=== PATIENT | male | born 1985 | race Caucasian/White ===

== ENCOUNTER 2021-01-26 18:45 | Day surgery (SDC) | payer SELFPAY ==
[2021-01-26] MEDS ORDERED: Ketorolac 30 MG/ML SDV IVPUSH ONE (19:06)
[2021-01-26] MEDS ORDERED: Sodium Chloride 0.9% 1,000 ML IV ONE (19:06)
[2021-01-26] MEDS ORDERED: Sodium Chloride 0.9% 2.5 ML Syringe FLUSH PRN (19:06)
[2021-01-26] MEDS ORDERED: Ondansetron 4 MG/2 ML SDV IVPUSH ONE (19:06)
[2021-01-26] MEDS ORDERED: Sodium Chloride 0.9% 10 ML Syringe FLUSH PRN (19:06)
--- NOTE | 2021-01-26 19:19 | EDM.PDOC ---
ED HPI GENERAL MEDICAL PROBLEM - General Chief Complaint: Abdominal Pain Stated Complaint: POSSIBLE APPENDICITIS Time Seen by Provider: 01/26/21 18:54 Source of Information: Reports: Patient History Limitations: Reports: No Limitations - History of Present Illness INITIAL COMMENTS - FREE TEXT/NARRATIVE: HISTORY AND PHYSICAL: History of present illness: The patient is a 35-year-old male who presents to the emergency room with right lower quad pain which started around 01:00 today. The patient states that the pain started around his umbilicus and migrated to the right lower quadrant. He denies nausea but states he has been vomiting. He had a soft bowel movement today. He has decreased urination and describes it as cloudy in color. Denies fever but states he has had chills. Last meal was biscuits and gravy at noon, which he vomited up around 2 PM. Around 3 PM he took some Pepto-Bismol and after 30 minutes he vomited it back up. He stated that he has never had this pain before. Patient denies any headache, change in vision, syncope or near syncope. Denies any chest pain, back pain, shortness of breath or cough. Denies any diarrhea, constipation or dysuria. Has not noted any blood in urine or stool. Review of systems: As per history of present illness and below otherwise all systems reviewed and negative. Past medical history: As per history of present illness and as reviewed below otherwise noncontributory. Surgical history: As per history of present illness and as reviewed below otherwise noncontributory. Social history: See social history for further information Family history: As per history of present illness and as reviewed below otherwise noncontributory. Physical exam: General: Well developed and well nourished. Alert and orientated x 3. Nontoxic in appearance and in mild distress. Vital signs are stable and have been reviewed by me. Nursing notes were reviewed. HEENT: Atraumatic, normocephalic, pupils equal and reactive bilaterally, negative for conjunctival pallor or scleral icterus, mucous membranes moist, neck supple, nontender, trachea midline. No drooling or trismus noted. No meningeal signs. No hot potato voice noted. Lungs: Clear to auscultation bilaterally. No wheezes, rales, or rhonchi. Chest nontender. Normal work of breathing, no accessory muscles used. Heart: S1S2, regular rate and rhythm without overt murmur, gallops, or rubs. No JVD. No peripheral edema Abdomen: Tender RLQ. Negative obturator sign. + Psoas sign. Hypoactive bowel sounds. Negative for masses or costovertebral tenderness. Skin: Intact, warm, dry. No lesions or rashes noted. Hematologic: No petechiae or purpra. Mucosa appropriate color and normal nail bed color and refill. Extremities: Atraumatic, moves all extremities per self without difficulty or deficits, negative for cords or calf pain. Neurovascular unremarkable. Neuro: Awake, alert, oriented. Cranial nerves II through XII unremarkable. Cerebellum unremarkable. Motor and sensory unremarkable throughout. Exam nonfocal. Psychiatric: Patient is anxious but cooperative. Normal thought process. Answering questions appropriately. Notes: *This patient was seen and evaluated during the 2019 SARS-CoV-2 novel coronavirus pandemic period. Community viral transmission is ongoing at time of this encounter and the emergency department is operating under pandemic response procedures. Discussed the patient's signs and symptoms with him and he is agreeable to labs, CT, fluids, and medications. Patient has pain relief after Toradol. I have talked with the patient about today's findings, in addition to providing specific details for plan of care. Reassessment at the time of disposition demonstrates that the patient is in no acute distress. Denies any further questions or concerns at this time. CT results findings most consistent with appendicitis without evidence of abscess or free air. Dr. Barraza contacted regarding the patient's CAT scan results, white blood cell count and presentation. Dr. Barraza will be taking the patient to surgery. The patient is informed and agreeable to the plan. Diagnostics: CT, CBC, CMP, Lipase, UA, COVID-19 Therapeutics: IV fluids, Zofran, Toradol, LR IV fluids, Levaquin 750mg IV Impression: Appendicitis Plan: To OR with Dr. Barraza. Definitive disposition and diagnosis as appropriate pending reevaluation and review of above. Right Lower Abdomen Pain Score (Numeric/FACES): 7 - Related Data Allergies Allergy/AdvReac Type Severity Reaction Status Date / Time Penicillins Allergy Mild Rash Verified 01/27/21 01:16 egg Allergy Hives Verified 01/27/21 01:17 Home Meds: Home Meds . [No Known Home Meds] 01/26/21 [History] Past Medical History - Past Health History Medical/Surgical History: Denies Medical/Surgical History - Infectious Disease History Infectious Disease History: Reports: Chicken Pox - Past Surgical History HEENT Surgical History: Reports: Tonsillectomy Social & Family History - Family History Family Medical History: No Pertinent Family History - Tobacco Use Tobacco Use Status *Q: Current Every Day Tobacco User Years of Tobacco use: 10 Packs/Tins Daily: 0.5 - Caffeine Use Caffeine Use: Reports: Coffee - Recreational Drug Use Recreational Drug Use: No ED ROS GENERAL - Review of Systems Review Of Systems: Comprehensive ROS is negative, except as noted in HPI. ED EXAM, GI/ABD - Physical Exam Exam: See Below (See dictation) Course - Vital Signs Last Recorded V/S: Last Vital Signs Temp 98.4 F 01/27/21 08:47 Pulse 76 01/27/21 08:47 Resp 14 01/27/21 08:47 BP 114/67 01/27/21 08:47 Pulse Ox 98 01/27/21 08:47 - Orders/Labs/Meds Labs: Laboratory Tests 01/26/21 01/26/21 01/26/21 Range/Units 19:10 19:10 19:28 WBC 18.39 H (4.0-11.0) K/uL RBC 5.42 (4.50-5.90) M/uL Hgb 17.8 H (13.0-17.0) g/dL Hct 51.2 H (38.0-50.0) % MCV 94.5 (80.0-98.0) fL MCH 32.8 H (27.0-32.0) pg MCHC 34.8 (31.0-37.0) g/dL RDW Std Deviation 44.3 (28.0-62.0) fl RDW Coeff of Cari 13 (11.0-15.0) % Plt Count 212 (150-400) K/uL MPV 11.30 (7.40-12.00) fL Neut % (Auto) 85.3 H (48.0-80.0) % Lymph % (Auto) 6.4 L (16.0-40.0) % [place] % (Auto) 7.9 (0.0-15.0) % Eos % (Auto) 0.2 (0.0-7.0) % Baso % (Auto) 0.2 (0.0-1.5) % Neut # (Auto) 15.7 H (1.4-5.7) K/uL Lymph # (Auto) 1.2 (0.6-2.4) K/uL [place] # (Auto) 1.5 H (0.0-0.8) K/uL Eos # (Auto) 0.0 (0.0-0.7) K/uL Baso # (Auto) 0.0 (0.0-0.1) K/uL Nucleated RBC % 0.0 /100WBC Nucleated RBCs # 0 K/uL Sodium 138 (136-148) mmol/L Potassium 3.4 L (3.5-5.1) mmol/L Chloride 100 (98-107) mmol/L Carbon Dioxide 24.2 (21.0-32.0) mmol/L BUN 14 (7.0-18.0) mg/dL Creatinine 1.2 (0.8-1.3) mg/dL Est Cr Clr Drug Dosing 104.65 mL/min Estimated GFR (MDRD) > 60.0 ml/min Glucose 109 H (74-106) mg/dL Calcium 9.6 (8.5-10.1) mg/dL Total Bilirubin 1.2 H (0.2-1.0) mg/dL AST 13 L (15-37) IU/L ALT 36 (14-63) IU/L Alkaline Phosphatase 95 (46-116) U/L Total Protein 8.3 H (6.4-8.2) g/dL Albumin 4.6 (3.4-5.0) g/dL Globulin 3.7 (2.6-4.0) g/dL Albumin/Globulin Ratio 1.2 (0.9-1.6) Lipase 94 (73-393) U/L Urine Color Urine Appearance Urine pH (5.0-8.0) Ur Specific [place] (1.001-1.035) Urine Protein (NEGATIVE) mg/dL Urine Glucose (UA) (NEGATIVE) mg/dL Urine Ketones (NEGATIVE) mg/dL Urine Occult Blood (NEGATIVE) Urine Nitrite (NEGATIVE) Urine Bilirubin (NEGATIVE) Urine Ictotest Urine Urobilinogen (<2.0) EU/dL Ur Leukocyte Esterase (NEGATIVE) Urine RBC (0-2/HPF) Urine WBC (0-5/HPF) Ur Epithelial Cells (NONE-FEW) Urine Bacteria (NEGATIVE) SARS-CoV-2 RNA (LILIYA) NEGATIVE (NEGATIVE) 01/26/21 Range/Units 19:55 WBC (4.0-11.0) K/uL RBC (4.50-5.90) M/uL Hgb (13.0-17.0) g/dL Hct (38.0-50.0) % MCV (80.0-98.0) fL MCH (27.0-32.0) pg MCHC (31.0-37.0) g/dL RDW Std Deviation (28.0-62.0) fl RDW Coeff of [place]ari (11.0-15.0) % Plt Count (150-400) K/uL MPV (7.40-12.00) fL Neut % (Auto) (48.0-80.0) % Lymph % (Auto) (16.0-40.0) % [place] % (Auto) (0.0-15.0) % Eos % (Auto) (0.0-7.0) % Baso % (Auto) (0.0-1.5) % Neut # (Auto) (1.4-5.7) K/uL Lymph # (Auto) (0.6-2.4) K/uL [place] # (Auto) (0.0-0.8) K/uL Eos # (Auto) (0.0-0.7) K/uL Baso # (Auto) (0.0-0.1) K/uL Nucleated RBC % /100WBC Nucleated RBCs # K/uL Sodium (136-148) mmol/L Potassium (3.5-5.1) mmol/L Chloride (98-107) mmol/L Carbon Dioxide (21.0-32.0) mmol/L BUN (7.0-18.0) mg/dL Creatinine (0.8-1.3) mg/dL Est Cr Clr Drug Dosing mL/min Estimated GFR (MDRD) ml/min Glucose (74-106) mg/dL Calcium (8.5-10.1) mg/dL Total Bilirubin (0.2-1.0) mg/dL AST (15-37) IU/L ALT (14-63) IU/L Alkaline Phosphatase (46-116) U/L Total Protein (6.4-8.2) g/dL Albumin (3.4-5.0) g/dL Globulin (2.6-4.0) g/dL Albumin/Globulin Ratio (0.9-1.6) Lipase (73-393) U/L Urine Color YELLOW Urine Appearance CLEAR Urine pH 7.0 (5.0-8.0) Ur Specific [place] 1.025 (1.001-1.035) Urine Protein TRACE H (NEGATIVE) mg/dL Urine Glucose (UA) NEGATIVE (NEGATIVE) mg/dL Urine Ketones >=80 (NEGATIVE) mg/dL Urine Occult Blood NEGATIVE (NEGATIVE) Urine Nitrite NEGATIVE (NEGATIVE) Urine Bilirubin MODERATE H (NEGATIVE) Urine Ictotest NEGATIVE Urine Urobilinogen 1.0 (<2.0) EU/dL Ur Leukocyte Esterase NEGATIVE (NEGATIVE) Urine RBC 0-1 (0-2/HPF) Urine WBC 0-1 (0-5/HPF) Ur Epithelial Cells RARE (NONE-FEW) Urine Bacteria RARE (NEGATIVE) SARS-CoV-2 RNA (LILIYA) (NEGATIVE) Meds: Medications Discontinued Medications Generic Name Dose Route Start Last Admin Trade Name Freq PRN Reason Stop Dose Admin Albuterol Confirm 01/26/21 23:44 Albuterol 6.7 Gm Inhaler Administered 01/26/21 23:45 Dose 6.7 gm INH .STK-MED ONE Dexamethasone Confirm 01/26/21 21:52 Dexamethasone 4 Mg/Ml 5 Ml Mdv Administered 01/26/21 21:53 Dose 20 mg .ROUTE .STK-MED ONE Fentanyl Confirm 01/26/21 21:53 Fentanyl 250 Mcg/5 Ml Sdv Administered 01/26/21 21:54 Dose 250 mcg .ROUTE .STK-MED ONE Fentanyl 50 mcg 01/26/21 22:48 Fentanyl 100 Mcg/2 Ml Sdv IVPUSH 01/27/21 22:48 Q5M PRN Pain (severe 7-10) Glycopyrrolate Confirm 01/26/21 22:54 Glycopyrrolate 0.2 Mg/Ml Sdv Administered 01/26/21 22:55 Dose 0.6 mg .ROUTE .STK-MED ONE Hydromorphone HCl Confirm 01/26/21 22:41 Hydromorphone 2 Mg/Ml Syringe Administered 01/26/21 22:42 Dose 2 mg .ROUTE .STK-MED ONE Sodium Chloride 1,000 mls @ 999 mls/hr 01/26/21 19:06 01/26/21 19:14 Normal Saline IV 01/26/21 20:06 999 mls/hr BOLUS ONE Administration Lactated Ringer's 1,000 mls @ 150 mls/hr 01/26/21 20:46 01/26/21 20:52 Ringers, Lactated IV 01/27/21 03:25 150 mls/hr ASDIRECTED STA Administration Levofloxacin/Dextrose 750 mg/ 150 mls @ 100 mls/hr 01/26/21 20:46 01/26/21 20:52 Premix IV 01/26/21 22:15 100 mls/hr ONETIME ONE Administration Bupivacaine HCl/Epinephrine Bitart Confirm 01/26/21 22:11 Sensorc Mpf 0.25%-Epi [id number] Administered 01/26/21 22:12 Dose 30 mls @ as directed .ROUTE .STK-MED ONE Acetaminophen 1,000 mg/ Premix 100 mls @ 400 mls/hr 01/26/21 22:56 01/27/21 06:15 IV 01/26/21 23:10 Not Given NOW ONE Lactated Ringer's 1,000 mls @ 125 mls/hr 01/26/21 23:45 Ringers, Lactated IV ASDIRECTED TERE Levofloxacin/Dextrose 750 mg/ 150 mls @ 100 mls/hr 01/27/21 21:00 Premix IV Q24H TERE Iopamidol 100 ml 01/26/21 20:07 01/26/21 20:07 Iopamidol 755 Mg/Ml 500 Ml Multipack Bottle IVPUSH 01/26/21 20:08 100 ml ONETIME STA Administration Ketorolac Tromethamine 30 mg 01/26/21 19:06 01/26/21 19:14 Ketorolac 30 Mg/Ml Sdv IVPUSH 01/26/21 19:07 30 mg ONETIME ONE Administration Ketorolac Tromethamine Confirm 01/26/21 23:47 Ketorolac 30 Mg/Ml Sdv Administered 01/26/21 23:48 Dose 30 mg .ROUTE .STK-MED ONE Lidocaine Confirm 01/26/21 21:52 Lidocaine 2% 5 Ml Sdv Administered 01/26/21 21:53 Dose 5 ml .ROUTE .STK-MED ONE Midazolam HCl Confirm 01/26/21 21:53 Midazolam 1 Mg/Ml 2 Ml Sdv Administered 01/26/21 21:54 Dose 2 mg .ROUTE .STK-MED ONE Midazolam HCl Confirm 01/26/21 23:12 Midazolam 1 Mg/Ml 2 Ml Sdv Administered 01/26/21 23:13 Dose 2 mg .ROUTE .STK-MED ONE Morphine Sulfate 4 mg 01/26/21 23:52 Morphine 4 Mg/Ml Syringe IVPUSH Q6H PRN Breakthrough Pain Octyl Cyanoacrylate Confirm 01/26/21 22:11 Octyl 2-Cyanoacrylate 1 Tube Administered 01/26/21 22:12 Dose 1 applic .ROUTE .STK-MED ONE Ondansetron HCl 4 mg 01/26/21 19:06 01/26/21 19:14 Ondansetron 4 Mg/2 Ml Sdv IVPUSH 01/26/21 19:07 4 mg ONETIME ONE Administration Ondansetron HCl Confirm 01/26/21 21:52 Ondansetron 4 Mg/2 Ml Sdv Administered 01/26/21 21:53 Dose 4 mg .ROUTE .STK-MED ONE Ondansetron HCl 4 mg 01/26/21 23:56 Ondansetron 4 Mg/2 Ml Sdv IVPUSH Q8H PRN Nausea/Vomiting Oxycodone/Acetaminophen 1 tab 01/26/21 23:52 01/27/21 11:51 Acetaminophen/Oxycodone 325-5 Mg Tab PO 1 tab Q6H PRN Administration Pain Propofol Confirm 01/26/21 21:52 Propofol 200 Mg/20 Ml Sdv Administered 01/26/21 21:53 Dose 200 mg .ROUTE .STK-MED ONE Rocuronium [place] Confirm 01/26/21 21:52 Rocuronium [place] 50 Mg/5 Ml Syringe Administered 01/26/21 21:53 Dose 50 mg .ROUTE .STK-MED ONE Sodium Chloride 10 ml 01/26/21 19:06 01/26/21 19:15 Sodium Chloride 0.9% 10 Ml Syringe FLUSH 10 ml ASDIRECTED PRN Administration Keep Vein Open Sodium Chloride 2.5 ml 01/26/21 19:06 01/26/21 19:15 Sodium Chloride 0.9% 2.5 Ml Syringe FLUSH 2.5 ml ASDIRECTED PRN Administration Keep Vein Open Departure - Departure Time of Disposition: 22:30 Disposition: Admitted As Inpatient 68 Condition: Good Clinical Impression: Appendicitis Qualifiers: Appendicitis type: acute appendicitis - Discharge Information Sepsis Event Note (ED) - Evaluation Sepsis Screening Result: No Definite Risk
[2021-01-26 19:43] LABS: BLOOD UREA NITROGEN,BUN 14 mg/dL (7.0-18.0); CARBON DIOXIDE,CO2 24.2 mmol/L (21.0-32.0); CHLORIDE,CL 100 mmol/L (98-107); GLUCOSE RANDOM 109 mg/dL (74-106); LIPASE 94 U/L (73-393); POTASSIUM,K 3.4 mmol/L (3.5-5.1); SODIUM,NA 138 mmol/L (136-148)
[2021-01-26] MEDS ORDERED: Iopamidol 755 MG/ML 500 ML Multipack Bottle IVPUSH STA (20:07)
--- NOTE | 2021-01-26 20:35 | CT ---
Indication: Right lower quadrant pain. Technique: Multiple contiguous axial images were obtained from the lung bases through the symphysis pubis after the intravenous administration 100 milliliters Isovue 370. Please note that all CT scans at this facility use dose modulation, iterative reconstruction, and/or weight-based dosing when appropriate to reduce radiation dose to as low as reasonably achievable. Comparison: None Findings: Left basilar atelectasis identified. No infiltrate, pleural effusion, or pneumothorax is identified. The distal esophagus is mildly patulous. The liver, spleen, gallbladder, pancreas, adrenals, and kidneys are normal. No intrahepatic biliary ductal dilatation is identified. No hydronephrosis is seen. The liver is enlarged measuring 20.5 centimeters in maximum dimension. In the pelvis, the urinary bladder is normal. The prostate gland is normal. Small and large bowel are normal in caliber. Mild diverticulosis identified. There is no evidence of diverticulitis. The colon is relatively decompressed. Thickening of the wall of the colon is identified, believed to be due to lack of distension. The appendix is markedly enlarged, measuring up to 18 millimeters in size. This is best seen on images number [id number]. Minimal fat stranding is identified in the right lower quadrant. No free air free fluid is identified within the abdomen or pelvis. The aorta is normal in caliber. No lytic or blastic lesions of the spine are identified. Impression: Findings most consistent with appendicitis without evidence of abscess or free air. These findings were discussed with Angle Francis at the time of this dictation. Please note that all CT scans at this facility use dose modulation, iterative reconstruction, and/or weight-based dosing when appropriate to reduce radiation dose to as low as reasonably achievable. Dictated by Nila Solorzano MD @ Jan 26 2021 8:29PM Signed by Dr. Nila Solorzano @ Jan 26 2021 8:34PM
[2021-01-26] MEDS ORDERED: Levofloxacin/Dextrose 5%-Water 750 MG in Premix Bag 1 BAG IV ONE (20:46)
[2021-01-26] MEDS ORDERED: Lactated Ringers 1,000 ML IV STA (20:46)
--- NOTE | 2021-01-26 21:41 | PCM.SN.2 ---
- Free Text/Narrative Note: pt seen, chart reviewed; 24 hrs gradual onset periumbilical pain, subsequently migrated to RLQ, CT >acute appendicitis; pt would benefit from timely surgical intervention; Dr. Parmar called in for an emergency situation, delivery of twins, and then the appendectomy case; r/b dw pt re bleeding/infection/damage to nearby organs/postop course/pain management; pt concurred and proceed with surgery; iv fluid/levaquin iv, shave, consent; see [id number]
[2021-01-26] MEDS ORDERED: Propofol 200 MG/20 ML SDV ONE (21:52)
[2021-01-26] MEDS ORDERED: Rocuronium Bromide 50 MG/5 ML Syringe ONE (21:52)
[2021-01-26] MEDS ORDERED: Ondansetron 4 MG/2 ML SDV ONE (21:52)
[2021-01-26] MEDS ORDERED: Lidocaine 2% 5 ML SDV ONE (21:52)
[2021-01-26] MEDS ORDERED: Dexamethasone 4 MG/ML 5 ML MDV ONE (21:52)
[2021-01-26] MEDS ORDERED: fentaNYL 250 MCG/5 ML SDV ONE (21:53)
[2021-01-26] MEDS ORDERED: Midazolam 1 MG/ML 2 ML SDV ONE ×2 (21:53→23:12)
[2021-01-26] MEDS ORDERED: Succinylcholine/Sod PF 100 MG/5 ML SYRINGE IV ONE (21:58)
[2021-01-26] MEDS ORDERED: Bupivacaine 25%/EPINEPHrine/PF 30 ML ONE (22:11)
[2021-01-26] MEDS ORDERED: Octyl 2-Cyanoacrylate 1 Tube ONE (22:11)
[2021-01-26] MEDS ORDERED: HYDROmorphone 2 MG/ML Syringe ONE (22:41)
[2021-01-26] MEDS ORDERED: fentaNYL 100 MCG/2 ML SDV IVPUSH PRN (22:48)
--- NOTE | 2021-01-26 22:48 | PCM.PREANE ---
Preanesthetic Assessment - Procedure Proposed Procedure: laparoscopic appendectomy - Anesthesia/Transfusion/Family Hx Anesthesia History: Prior Anesthesia Without Reaction Family History of Anesthesia Reaction: No Intubation History: Unknown - Review of Systems General: Chills Pulmonary: No Symptoms Cardiovascular: No Symptoms Gastrointestinal: Abdominal Pain, Nausea Neurological: No Symptoms Other: Reports: None - Physical Assessment NPO Status Date: 01/26/21 NPO Status Time: 12:00 Vital Signs: Last Vital Signs Temp 36.8 C 01/26/21 18:59 Pulse 70 01/26/21 18:59 Resp 18 01/26/21 18:59 BP 146/77 H 01/26/21 18:59 Pulse Ox 98 01/26/21 18:59 Height: 6 ft 3 in Weight: 97.522 kg ASA Class: 2 Thyro-Mental Finger Breadths: 3 Mouth Opening Finger Breadths: 3 ROM/Head Extension: Full Lungs: Clear to Auscultation, Normal Respiratory Effort Cardiovascular: Regular Rate, Regular Rhythm - Lab Values: Laboratory Last Values WBC 18.39 K/uL (4.0-11.0) H 01/26/21 19:10 RBC 5.42 M/uL (4.50-5.90) 01/26/21 19:10 Hgb 17.8 g/dL (13.0-17.0) H 01/26/21 19:10 Hct 51.2 % (38.0-50.0) H 01/26/21 19:10 MCV 94.5 fL (80.0-98.0) 01/26/21 19:10 MCH 32.8 pg (27.0-32.0) H 01/26/21 19:10 MCHC 34.8 g/dL (31.0-37.0) 01/26/21 19:10 RDW Std Deviation 44.3 fl (28.0-62.0) 01/26/21 19:10 RDW Coeff of Cari 13 % (11.0-15.0) 01/26/21 19:10 Plt Count 212 K/uL (150-400) 01/26/21 19:10 MPV 11.30 fL (7.40-12.00) 01/26/21 19:10 Neut % (Auto) 85.3 % (48.0-80.0) H 01/26/21 19:10 Lymph % (Auto) 6.4 % (16.0-40.0) L 01/26/21 19:10 [place] % (Auto) 7.9 % (0.0-15.0) 01/26/21 19:10 Eos % (Auto) 0.2 % (0.0-7.0) 01/26/21 19:10 Baso % (Auto) 0.2 % (0.0-1.5) 01/26/21 19:10 Neut # (Auto) 15.7 K/uL (1.4-5.7) H 01/26/21 19:10 Lymph # (Auto) 1.2 K/uL (0.6-2.4) 01/26/21 19:10 [place] # (Auto) 1.5 K/uL (0.0-0.8) H 01/26/21 19:10 Eos # (Auto) 0.0 K/uL (0.0-0.7) 01/26/21 19:10 Baso # (Auto) 0.0 K/uL (0.0-0.1) 01/26/21 19:10 Nucleated RBC % 0.0 /100WBC 01/26/21 19:10 Nucleated RBCs # 0 K/uL 01/26/21 19:10 Sodium 138 mmol/L (136-148) 01/26/21 19:10 Potassium 3.4 mmol/L (3.5-5.1) L 01/26/21 19:10 Chloride 100 mmol/L (98-107) 01/26/21 19:10 Carbon Dioxide 24.2 mmol/L (21.0-32.0) 01/26/21 19:10 BUN 14 mg/dL (7.0-18.0) 01/26/21 19:10 Creatinine 1.2 mg/dL (0.8-1.3) 01/26/21 19:10 Est Cr Clr Drug Dosing 104.65 mL/min 01/26/21 19:10 Estimated GFR (MDRD) > 60.0 ml/min 01/26/21 19:10 Glucose 109 mg/dL (74-106) H 01/26/21 19:10 Calcium 9.6 mg/dL (8.5-10.1) 01/26/21 19:10 Total Bilirubin 1.2 mg/dL (0.2-1.0) H 01/26/21 19:10 AST 13 IU/L (15-37) L 01/26/21 19:10 ALT 36 IU/L (14-63) 01/26/21 19:10 Alkaline Phosphatase 95 U/L (46-116) 01/26/21 19:10 Total Protein 8.3 g/dL (6.4-8.2) H 01/26/21 19:10 Albumin 4.6 g/dL (3.4-5.0) 01/26/21 19:10 Globulin 3.7 g/dL (2.6-4.0) 01/26/21 19:10 Albumin/Globulin Ratio 1.2 (0.9-1.6) 01/26/21 19:10 Lipase 94 U/L (73-393) 01/26/21 19:10 Urine Color YELLOW 01/26/21 19:55 Urine Appearance CLEAR 01/26/21 19:55 Urine pH 7.0 (5.0-8.0) 01/26/21 19:55 Ur Specific [place] 1.025 (1.001-1.035) 01/26/21 19:55 Urine Protein TRACE mg/dL (NEGATIVE) H 01/26/21 19:55 Urine Glucose (UA) NEGATIVE mg/dL (NEGATIVE) 01/26/21 19:55 Urine Ketones >=80 mg/dL (NEGATIVE) 01/26/21 19:55 Urine Occult Blood NEGATIVE (NEGATIVE) 01/26/21 19:55 Urine Nitrite NEGATIVE (NEGATIVE) 01/26/21 19:55 Urine Bilirubin MODERATE (NEGATIVE) H 01/26/21 19:55 Urine Ictotest NEGATIVE 01/26/21 19:55 Urine Urobilinogen 1.0 EU/dL (<2.0) 01/26/21 19:55 Ur Leukocyte Esterase NEGATIVE (NEGATIVE) 01/26/21 19:55 Urine RBC 0-1 (0-2/HPF) 01/26/21 19:55 Urine WBC 0-1 (0-5/HPF) 01/26/21 19:55 Ur Epithelial Cells RARE (NONE-FEW) 01/26/21 19:55 Urine Bacteria RARE (NEGATIVE) 01/26/21 19:55 SARS-CoV-2 RNA (LILIYA) NEGATIVE (NEGATIVE) 01/26/21 19:28 - Allergies Allergies/Adverse Reactions: Allergies Allergy/AdvReac Type Severity Reaction Status Date / Time Penicillins Allergy Mild Rash Verified 01/26/21 18:59 - Blood Blood Available: No - Anesthesia Plan Pre-Op Medication Ordered: None - Acknowledgements Anesthesia Type Planned: General Anesthesia Pt an Appropriate Candidate for the Planned Anesthesia: Yes Alternatives and Risks of Anesthesia Discussed w Pt/Guardian: Yes Pt/Guardian Understands and Agrees with Anesthesia Plan: Yes PreAnesthesia Questionnaire - Past Health History Medical/Surgical History: Denies Medical/Surgical History - Infectious Disease History Infectious Disease History: Reports: Chicken Pox - Past Surgical History HEENT Surgical History: Reports: Tonsillectomy - SUBSTANCE USE Tobacco Use Status *Q: Current Every Day Tobacco User Tobacco Use Within Last Twelve Months: Cigarettes Recreational Drug Use History: No - HOME MEDS Home Medications: Home Meds . [No Known Home Meds] 01/26/21 [History] - CURRENT (IN HOUSE) MEDS Current Meds: Current Medications Lactated Ringer's (Ringers, Lactated) 1,000 mls @ 150 mls/hr IV ASDIRECTED STA Stop: 01/27/21 03:25 Last Admin: 01/26/21 20:52 Dose: 150 mls/hr Documented by: Sodium Chloride (Sodium Chloride 0.9% 10 Ml Syringe) 10 ml FLUSH ASDIRECTED PRN PRN Reason: Keep Vein Open Last Admin: 01/26/21 19:15 Dose: 10 ml Documented by: Sodium Chloride (Sodium Chloride 0.9% 2.5 Ml Syringe) 2.5 ml FLUSH ASDIRECTED PRN PRN Reason: Keep Vein Open Last Admin: 01/26/21 19:15 Dose: 2.5 ml Documented by: Discontinued Medications Dexamethasone (Dexamethasone 4 Mg/Ml 5 Ml Mdv) Confirm Administered Dose 20 mg .ROUTE .STK-MED ONE Stop: 01/26/21 21:53 Fentanyl (Fentanyl 250 Mcg/5 Ml Sdv) Confirm Administered Dose 250 mcg .ROUTE .STK-MED ONE Stop: 01/26/21 21:54 Hydromorphone HCl (Hydromorphone 2 Mg/Ml Syringe) Confirm Administered Dose 2 mg .ROUTE .STK-MED ONE Stop: 01/26/21 22:42 Sodium Chloride (Normal Saline) 1,000 mls @ 999 mls/hr IV BOLUS ONE Stop: 01/26/21 20:06 Last Admin: 01/26/21 19:14 Dose: 999 mls/hr Documented by: Levofloxacin/Dextrose 750 mg/ (Premix) 150 mls @ 100 mls/hr IV ONETIME ONE Stop: 01/26/21 22:15 Last Admin: 01/26/21 20:52 Dose: 100 mls/hr Documented by: Bupivacaine HCl/Epinephrine Bitart (Sensorc Mpf 0.25%-Epi 1:[id number]) Confirm Administered Dose 30 mls @ as directed .ROUTE .STK-MED ONE Stop: 01/26/21 22:12 Iopamidol (Iopamidol 755 Mg/Ml 500 Ml Multipack Bottle) 100 ml IVPUSH ONETIME STA Stop: 01/26/21 20:08 Last Admin: 01/26/21 20:07 Dose: 100 ml Documented by: Ketorolac Tromethamine (Ketorolac 30 Mg/Ml Sdv) 30 mg IVPUSH ONETIME ONE Stop: 01/26/21 19:07 Last Admin: 01/26/21 19:14 Dose: 30 mg Documented by: Lidocaine (Lidocaine 2% 5 Ml Sdv) Confirm Administered Dose 5 ml .ROUTE .STK-MED ONE Stop: 01/26/21 21:53 Midazolam HCl (Midazolam 1 Mg/Ml 2 Ml Sdv) Confirm Administered Dose 2 mg .ROUTE .STK-MED ONE Stop: 01/26/21 21:54 Octyl Cyanoacrylate (Octyl 2-Cyanoacrylate 1 Tube) Confirm Administered Dose 1 applic .ROUTE .STK-MED ONE Stop: 01/26/21 22:12 Ondansetron HCl (Ondansetron 4 Mg/2 Ml Sdv) 4 mg IVPUSH ONETIME ONE Stop: 01/26/21 19:07 Last Admin: 01/26/21 19:14 Dose: 4 mg Documented by: Ondansetron HCl (Ondansetron 4 Mg/2 Ml Sdv) Confirm Administered Dose 4 mg .ROUTE .STK-MED ONE Stop: 01/26/21 21:53 Propofol (Propofol 200 Mg/20 Ml Sdv) Confirm Administered Dose 200 mg .ROUTE .STK-MED ONE Stop: 01/26/21 21:53 Rocuronium [place] (Rocuronium [place] 50 Mg/5 Ml Syringe) Confirm Administered Dose 50 mg .ROUTE .[facility] ONE Stop: 01/26/21 21:53
[2021-01-26] MEDS ORDERED: Glycopyrrolate 0.2 MG/ML SDV ONE (22:54)
[2021-01-26] MEDS ORDERED: Acetaminophen 1,000 MG in Premix Bag 1 BAG IV ONE (22:56)
[2021-01-26] MEDS ORDERED: Albuterol 6.7 GM Inhaler INH ONE (23:44)
[2021-01-26] MEDS ORDERED: Lactated Ringers 1,000 ML IV SCH (23:45)
[2021-01-26] MEDS ORDERED: Ketorolac 30 MG/ML SDV ONE (23:47)
--- NOTE | 2021-01-26 23:51 | PCM.OPNOTE ---
- General Post-Op/Procedure Note Date of Surgery/Procedure: 01/26/21 Operative Procedure(s): lap appendectomy Findings: appendix was v dilated and the proximal 1/2 was dusky in appearance; peritoneal fluid was purulent in appearence and yellow cloudy; gross perforation is not observed; [id number] Pre Op Diagnosis: appendicitis Post-Op Diagnosis: Same Anesthesia Technique: General ET Tube Primary Surgeon: Bar Velasquez Pathology: sent Surgical Drain/Tube Type: Wilfrid Bolivar Drain Complications: None Condition: Fair Free Text/Narrative:: Intake & Output 01/26/21 01/26/21 01/27/21 14:59 22:59 06:59 Output Total 150 Balance -150
[2021-01-26] MEDS ORDERED: Morphine 4 MG/ML Syringe IVPUSH PRN (23:52)
[2021-01-26] MEDS ORDERED: Ondansetron 4 MG/2 ML SDV IVPUSH PRN (23:56)
--- NOTE | 2021-01-27 00:17 | PCM.POSTAN ---
POST ANESTHESIA ASSESSMENT - MENTAL STATUS Mental Status: Alert, Oriented - VITAL SIGNS Vital Signs: Last Vital Signs Temp 38.7 C H 01/27/21 00:00 Pulse 124 H 01/27/21 00:10 Resp 15 01/27/21 00:10 BP 130/53 L 01/27/21 00:10 Pulse Ox 96 01/27/21 00:10 - RESPIRATORY Respiratory Status: Respiratory Rate WNL, Airway Patent, O2 Saturation Stable - CARDIOVASCULAR CV Status: Pulse Rate WNL, Blood Pressure Stable - GASTROINTESTINAL GI Status: No Symptoms - PAIN Pain Score: 2 - POST OP HYDRATION Hydration Status: Adequate & Stable - OBSERVATIONS Free Text/Narrative:: voice a little horse
[2021-01-27] MEDS: Acetaminophen/oxyCODONE 325-5 MG Tab PO PRN ×3 (00:50→11:51)
--- NOTE | 2021-01-27 06:48 | PCM48HPAN ---
Post Anesthesia Note - EVALUATION WITHIN 48HRS OF ANESTHETIC Vital Signs in Normal Range: Yes Patient Participated in Evaluation: Yes Respiratory Function Stable: Yes Airway Patent: Yes Cardiovascular Function Stable: Yes Hydration Status Stable: Yes Pain Control Satisfactory: Yes Nausea and Vomiting Control Satisfactory: Yes Mental Status Recovered: Yes Vital Signs: Last Vital Signs Temp 36.8 C 01/27/21 04:45 Pulse 88 01/27/21 04:45 Resp 14 01/27/21 04:45 BP 110/54 L 01/27/21 04:45 Pulse Ox 94 L 01/27/21 04:45 - COMMENTS/OBSERVATIONS Free Text/Narrative:: Patient has no complaints at this time. There were no apparent anesthetic complications at this time. Discharge from anesthesia service.
--- NOTE | 2021-01-27 08:15 | CONS ---
DATE OF CONSULTATION: 01/26/2021 DATE OF : 1985 PRIMARY CARE PHYSICIAN: None PCP EMERGENCY ROOM CONSULTATION CONSULTING QUESTION: Acute appendicitis. HISTORY OF PRESENT ILLNESS: The patient is a 35-year-old gentleman with complaint of over 24-hour history of gradual onset right lower quadrant pain. Pain initially from the umbilicus and subsequently migrated to the right lower quadrant. The patient also complained about emesis. The patient's last meal around noon time with some biscuits and gravy, and threw again at 2:00 p.m. The patient is subsequently seeked help in the emergency room, got a CAT scan that shows dilated appendix of up to 18 mm. Surgery was then consulted. At the time of consult, the patient remarked that, when the car stopped in front of the traffic light it hurt more, and currently the pain, on pain scale of 10, is about 4 or 5. PAST MEDICAL HISTORY: Significant for no diabetes, NH, CVA, or hypertension. PAST SURGICAL HISTORY: No abdominal surgery. ALLERGIES: Please refer to nursing for details. MEDICATIONS: Please refer to nursing for details. FAMILY HISTORY: Noncontributory. SOCIAL HISTORY: The patient is day-to-day smoker. PHYSICAL EXAMINATION: GENERAL: A very pleasant gentleman, even smiled to the doctor, in no acute distress. HEENT: Normocephalic and atraumatic. Sclerae are anicteric. LUNGS: Clear to auscultation. HEART: Regular rate and rhythm. ABDOMEN: Soft and nondistended. No pulsating tender midline abdominal structure. Exquisite tenderness on the right lower quadrant at the McBurney point. Positive Rovsing sign, pressing on the left, and hurting in the right. No rebound tenderness. LABORATORY DATA: White count is 18, H and H are 18 and 51, platelet is 212. Sodium is 138, potassium is 3.4, BUN is 14, creatinine is 1.2, total bilirubin is 1.2, AST and ALT of 13 and 36, and alkaline phosphatase is 95. CAT scan reading: CT suggests some dirty fat around the appendix and appendix dilated at 18 mm, no free air. IMPRESSION: Clinical examination and imaging study and laboratory value suggests of acute appendicitis. The patient will benefit from timely surgery. Dr. Finley was called for an emergency situation for delivery of baby, so we are waiting for Dr. Finley's case to finish, and then will go into surgery. Risks and benefits discussed with the patient including bleeding, infection, damage to nearby organ, possible perforation will require KIAH drain insertion, and also discussed postop pain management. The patient concurred to proceed as planned. We will start with IV fluid, antibiotic, and get a consent, and we will take the patient to surgery on a timely basis. As always, thank you for the kind referral. ZACHARIAH / DESIREE /[id number]
[2021-01-27 08:48] VITALS: BP 114/67; PULSE 76
--- NOTE | 2021-01-27 09:00 | OR ---
SURGEON: Bar Velasquez MD DATE OF PROCEDURE: 01/26/2021 PREOPERATIVE DIAGNOSIS: Acute appendicitis. POSTOPERATIVE DIAGNOSIS: Acute appendicitis. PROCEDURE PERFORMED: Laparoscopic appendectomy. PRIMARY SURGEON: Bar Velasquez MD. COMPLICATIONS: None. FINDING: Appendix is very dilated, and the proximal 1/3 is dusky in appearance. Gross perforation is not observed, but the peritoneal fluid is cloudy and yellow and purulent in appearance. PROCEDURE IN DETAIL: The patient was taken to the operating room and placed in the supine position. Following induction of general endotracheal anesthesia, the patient's abdomen was prepped and draped in the sterile fashion. A time-out has been called. The patient was identified. The procedure was identified. The antibiotics were identified. The procedure then proceeded. The abdomen was prepped and draped in a standard fashion. After assessment of appropriate landmarks, a 12 millimeter trocar was inserted supraumbilically using Optiview and pneumoperitoneum was then achieved. This was followed with placement of 5 millimeter port in the right upper quadrant and another 5 millimeter port infraumbilically. The camera was inserted supraumbilical site and two laparoscopic [place] retractors were then inserted through the other two sites. Following the cecum, the appendix was located. The appendix was then lifted up, and using a GI stapler the appendix was amputated at the base. And using the GI stapler, the mesoappendix was then amputated. The appendix was retrieved by an endoscopic bag and sent for pathologist. After the appendix had been removed, copious irrigation was performed followed by placement of Surgicel for hemostasis, and after that a flat 10 KIAH drain was inserted in the peritoneal cavity and anchored to the skin using 2-0 silk. This was then followed by re-insertion of the camera to examine the staple line, and hemostasis. The trocars were then removed. The umbilical port site was closed with 2-0 Vicryl on the deep stitch and skin approximated by use of skin staple. The other port sites were also closed with skin alexa. This was then followed by appropriate dressing. The patient was awakened and transferred to recovery room in hemodynamically dynamically stable condition. The patient tolerated the procedure well. There were no intraoperative complications. Dr. Velasquez was present throughout the whole procedure. As always, thank you for the kind referral. FINDINGS: As dictated above. LIANS / MODL /[id number]
[2021-01-27] MEDS ORDERED: Levofloxacin/Dextrose 5%-Water 750 MG in Premix Bag 1 BAG IV SCH (21:00)
== END 2021-01-27 11:55 | disposition home or self-care (01) ==
LOC: MW.ED 18:45 → MW.SDS 20:51 → MW.MS 23:51 → MW.SDS 01-27 11:55
PROVIDERS: ATTEND Surgery
DX: K35.80 Unspecified acute appendicitis (principal); Z01.812 Encounter for preprocedural laboratory examination; Z20.822 Contact with and (suspected) exposure to COVID-19; Z98.890 Other specified postprocedural states
CPT/HCPCS: 36415; 44970; 74177; 80053; 81001; 83690; 85025; 87635; 88304; A9270; J0330; J1100; J1170; J1885; J1956; J2250; J2405; J2704; J3010; J3490; J7030; J7120; Q9967; C1776; U0002

== ENCOUNTER 2025-04-09 13:52 | Emergency (ER) | payer SELFPAY ==
[2025-04-09 14:07] VITALS: BP 137/96
[2025-04-09] MEDS ORDERED: Sodium Chloride 0.9% 20 ML SDV IV PRN (14:35)
[2025-04-09] MEDS ORDERED: Sodium Chloride 0.9% 10 ML Syringe FLUSH PRN (14:35)
[2025-04-09] MEDS ORDERED: Sodium Chloride 0.9% 2.5 ML Syringe FLUSH PRN (14:35)
[2025-04-09 15:25] LABS: INR 1.13 (0.86-1.11); PTT,PARTIAL THROMBOPLSTIN TIME 28.4 SEC (23.9-30.7)
[2025-04-09 15:25] LABS: COLOR,URINE ORANGE; GLUCOSE,URINE NEGATIVE (NEGATIVE); KETONES,URINE TRACE mg/dL (NEGATIVE); LEUKOCYTE ESTERASE,URINE NEGATIVE (NEGATIVE); NITRITE,URINE NEGATIVE (NEGATIVE); OCCULT BLOOD,URINE TRACE-INTACT (NEGATIVE); PH,URINE 5.5 (5.0-8.0); PROTEIN,URINE 30 mg/dL (NEGATIVE); UROBILINOGEN,URINE 0.2 EU/dL (<2.0)
[2025-04-09 15:34] LABS: BASOPHILS ABSOLUTE AUTO 0.04 K/uL (0.00-0.20); BASOPHILS PERCENT AUTO 0.8 % (0.0-1.0); EOSINOPHILS ABSOLUTE AUTO 0.03 K/uL (0.00-0.45); EOSINOPHILS PERCENT AUTO 0.6 % (0.0-6.0); HEMATOCRIT 45.2 % (42.0-52.0); HEMOGLOBIN 16.6 g/dL (14.0-18.0); IMMATURE GRAN ABSOLUTE AUTO 0.01 K/uL (0.00-0.05); IMMATURE GRAN PERCENT AUTO 0.2 % (0.0-0.4); LYMPHOCYTES PERCENT AUTO 23.7 % (24.0-44.0); MEAN CORPUSCULAR HEMOGLOBIN 36.6 pg (28.0-32.0); MEAN CORPUSCULAR HGB CONC 36.7 g/dL (32.0-36.0); MEAN CORPUSCULAR VOLUME 99.8 fL (83.0-99.0); MEAN PLATELET VOLUME 12.2 fL (9.4-12.4); MONOCYTES PERCENT AUTO 7.9 % (0.0-8.0); NEUTROPHILS ABSOLUTE AUTO 3.38 K/uL (1.80-7.70); NEUTROPHILS PERCENT AUTO 66.8 % (41.0-71.0); RED BLOOD CELL COUNT 4.53 M/uL (4.52-5.90); WHITE BLOOD CELL COUNT,WBC 5.06 K/uL (3.9-11.3)
[2025-04-09 15:38] LABS: A/G RATIO 1.1 (0.9-1.6); ALBUMIN 3.5 g/dL (3.4-5.0); BILIRUBIN TOTAL 4.3 mg/dL (0.2-1.0); CALCIUM 8.3 mg/dL (8.5-10.1); CARBON DIOXIDE,CO2 25.8 mmol/L (21.0-32.0); EST CRCL DRUG DOSING (CG) 120.88 mL/min; MAGNESIUM 1.5 mg/dL (1.8-2.4); POTASSIUM,K 3.1 mmol/L (3.5-5.1); PROTEIN TOTAL,TP 6.7 g/dL (6.4-8.2)
[2025-04-09 15:40] LABS: APPEARANCE,URINE HAZY; BILIRUBIN,URINE MODERATE (NEGATIVE)
[2025-04-09 15:41] LABS: BACTERIA,URINE FEW (NEGATIVE); EPITHELIAL CELLS,URINE NOT SEEN (NONE-FEW); MUCUS,URINE LIGHT (NONE-MOD); WBC,URINE 0-2 (0-5/HPF)
[2025-04-09 15:46] LABS: PLATELET COUNT,PLT 52 K/uL (150-400)
[2025-04-09] MEDS: Sodium Chloride 0.9% 1,000 ML IV STA (16:48)
[2025-04-09] MEDS: Calcium Gluconate 10% 1 GM/10 ML SDV IVPUSH ONE (17:24)
[2025-04-09] MEDS: Potassium Chloride 20 MEQ Tab.ER PO ONE (17:24)
[2025-04-09] MEDS: Magnesium Sulfate 2 GM/50 mL 2 GM in Premix Bag 1 BAG IV ONE (17:25)
[2025-04-09] MEDS: Potassium Chloride 10 MEQ in Premix Bag 1 BAG IV SCH (17:29)
[2025-04-09 18:54] VITALS: PULSE 77
[2025-04-09] MEDS: Sodium Chloride 0.9% 250 ML IV ONE (19:34)
== END 2025-04-09 19:36 ==
LOC: MW.ED 13:52
DX: E87.6 Hypokalemia (principal); R74.01 Elevation of levels of liver transaminase levels; R79.89 Other specified abnormal findings of blood chemistry; D69.6 Thrombocytopenia, unspecified; Z88.0 Allergy status to penicillin; Z91.012 Allergy to eggs; Z90.49 Acquired absence of other specified parts of digestive tract
CPT/HCPCS: 36415; 74018; 76705; 80053; 81001; 83690; 83735; 85025; 85610; 85730; 96361; 96365; 96366; 96368; 96375; 99285; A9270; J0612; J3475; J3480; J7030

== ENCOUNTER 2025-04-17 17:12 | Emergency (ER) | payer SELFPAY ==
[2025-04-17 17:42] LABS: HEMATOCRIT 36.7 % (42.0-52.0); HEMOGLOBIN 13.3 g/dL (14.0-18.0); MEAN CORPUSCULAR HEMOGLOBIN 36.7 pg (28.0-32.0); MEAN CORPUSCULAR HGB CONC 36.2 g/dL (32.0-36.0); MEAN CORPUSCULAR VOLUME 101.4 fL (83.0-99.0); MEAN PLATELET VOLUME 10.7 fL (9.4-12.4); PLATELET COUNT,PLT 145 K/uL (150-400); RED BLOOD CELL COUNT 3.62 M/uL (4.52-5.90); WHITE BLOOD CELL COUNT,WBC 5.22 K/uL (3.9-11.3)
[2025-04-17 18:00] LABS: INR 1.03 (0.86-1.11)
[2025-04-17 18:04] LABS: APPEARANCE,URINE CLEAR; GLUCOSE,URINE NEGATIVE (NEGATIVE); KETONES,URINE NEGATIVE (NEGATIVE); LEUKOCYTE ESTERASE,URINE NEGATIVE (NEGATIVE); NITRITE,URINE NEGATIVE (NEGATIVE); OCCULT BLOOD,URINE NEGATIVE (NEGATIVE); PH,URINE 6.5 (5.0-8.0); PROTEIN,URINE NEGATIVE (NEGATIVE); UROBILINOGEN,URINE 0.2 EU/dL (<2.0)
[2025-04-17 18:06] LABS: ALANINE AMINOTRANSFERASE,ALT 125 IU/L (14-63); ALBUMIN 2.8 g/dL (3.4-5.0); ALKALINE PHOSPHATASE 197 U/L (46-116); ASPARTATE AMNIOTRANSFERASE,AST 248 IU/L (15-37); BILIRUBIN TOTAL 9.4 mg/dL (0.2-1.0); BLOOD UREA NITROGEN,BUN 7 mg/dL (7.0-18.0); CALCIUM 8.4 mg/dL (8.5-10.1); CARBON DIOXIDE,CO2 25.3 mmol/L (21.0-32.0); CHLORIDE,CL 101 mmol/L (98-107); CREATININE 0.8 mg/dL (0.8-1.3); ETHANOL BLOOD MEDICAL <3 mg/dL; GLUCOSE RANDOM 94 mg/dL (74-106); MAGNESIUM 1.5 mg/dL (1.8-2.4); POTASSIUM,K 3.5 mmol/L (3.5-5.1); PROTEIN TOTAL,TP 6.1 g/dL (6.4-8.2); SODIUM,NA 136 mmol/L (136-148)
[2025-04-17 18:10] LABS: A/G RATIO 0.9 (0.9-1.6); ESTIMATED GFR 117 mL/min (>60); LIPASE 265 U/L (16-77); SEG NEUTROPHILS ABSOLUTE MAN 2.87 K/uL (1.80-7.70); SEG NEUTROPHILS PERCENT MAN 55 % (41-71)
[2025-04-17 18:11] LABS: EOSINOPHILS ABSOLUTE MAN 0.21 K/uL (0.00-0.45); EOSINOPHILS PERCENT MAN 4 % (0-6); LYMPHOCYTES ABSOLUTE MAN 1.57 K/uL (1.00-4.80); LYMPHOCYTES PERCENT MAN 30 % (24-44); MONOCYTES ABSOLUTE MAN 0.57 K/uL (0.00-0.80); MONOCYTES PERCENT MAN 11 % (0-8)
[2025-04-17 18:14] LABS: BILIRUBIN,URINE LARGE (NEGATIVE); COLOR,URINE DARK YELLOW
[2025-04-17 19:08] VITALS: BP 128/83; PULSE 77
== END 2025-04-17 18:57 | disposition home or self-care (01) ==
LOC: MW.ED 17:12
DX: K70.30 Alcoholic cirrhosis of liver without ascites (principal); E80.6 Other disorders of bilirubin metabolism; R74.01 Elevation of levels of liver transaminase levels; Z91.012 Allergy to eggs; Z88.0 Allergy status to penicillin
CPT/HCPCS: 36415; 80053; 80307; 81003; 82140; 83690; 83735; 85025; 85610; 99283; 99284

== ENCOUNTER 2025-09-01 07:28 | Inpatient (IN) | payer SELFPAY ==
[2025-09-01 08:19] LABS: BASOPHILS ABSOLUTE AUTO 0.07 K/uL (0.00-0.20); BASOPHILS PERCENT AUTO 1.2 % (0.0-1.0); EOSINOPHILS ABSOLUTE AUTO 0.08 K/uL (0.00-0.45); EOSINOPHILS PERCENT AUTO 1.4 % (0.0-6.0); IMMATURE GRAN ABSOLUTE AUTO 0.01 K/uL (0.00-0.05); IMMATURE GRAN PERCENT AUTO 0.2 % (0.0-0.4); LYMPHOCYTES ABSOLUTE AUTO 2.42 K/uL (1.00-4.80); LYMPHOCYTES PERCENT AUTO 41.9 % (24.0-44.0); MEAN PLATELET VOLUME 9.8 fL (9.4-12.4); MONOCYTES ABSOLUTE AUTO 0.42 K/uL (0.00-0.80); MONOCYTES PERCENT AUTO 7.3 % (0.0-8.0); NEUTROPHILS ABSOLUTE AUTO 2.78 K/uL (1.80-7.70); NEUTROPHILS PERCENT AUTO 48.0 % (41.0-71.0); NRBC ABSOLUTE 0.00 K/uL (0.00-0.02); NRBC PERCENT 0.0 /100WBC (0.0-0.2); PLATELET COUNT,PLT 179 K/uL (150-400); RED BLOOD CELL COUNT 5.14 M/uL (4.52-5.90); WHITE BLOOD CELL COUNT,WBC 5.78 K/uL (3.9-11.3)
[2025-09-01 08:41] LABS: A/G RATIO 1.2 (0.9-1.6); ALANINE AMINOTRANSFERASE,ALT 40.0 IU/L (14-63); ASPARTATE AMNIOTRANSFERASE,AST 44.0 IU/L (15-37); BILIRUBIN TOTAL 1.1 mg/dL (0.2-1.0); BLOOD UREA NITROGEN,BUN 9.0 mg/dL (7.0-18.0); CARBON DIOXIDE,CO2 26.7 mmol/L (21.0-32.0); CHLORIDE,CL 107.0 mmol/L (98-107); CREATININE 0.9 mg/dL (0.8-1.3); EST CRCL DRUG DOSING (CG) 134.31 mL/min; ESTIMATED GFR 113.0 mL/min (>60); ETHANOL BLOOD MEDICAL 429.0 mg/dL; GLUCOSE RANDOM 111.0 mg/dL (74-106); POTASSIUM,K 3.7 mmol/L (3.5-5.1); PROTEIN TOTAL,TP 7.6 g/dL (6.4-8.2); SODIUM,NA 144.0 mmol/L (136-148)
[2025-09-01 08:55] LABS: APPEARANCE,URINE CLEAR; GLUCOSE,URINE NEGATIVE (NEGATIVE); OCCULT BLOOD,URINE NEGATIVE (NEGATIVE)
[2025-09-01 09:01] LABS: INR 1.0 (0.86-1.11)
[2025-09-01 09:05] LABS: AMPHETAMINES SCREEN, URINE NEGATIVE (CUTOFF=500); BUPRENORPHINE SCREEN,URINE NEGATIVE (CUTOFF=10); METHADONE SCREEN, URINE NEGATIVE (CUTOFF=200); METHAMPHETAMINES SCREEN, URINE NEGATIVE (CUTOFF=500); OXYCODONE SCREEN,URINE NEGATIVE (CUT0FF=100); PCP SCREEN,URINE NEGATIVE (CUTOFF=25); THC SCREEN,URINE 20 NG/ML PRESUMPTIVE POSITIVE (CUTOFF=50)
[2025-09-01] MEDS: Magnesium Sulfate 2 GM/50 mL 2 GM in Premix Bag 1 BAG IV ONE (10:03)
[2025-09-01] MEDS: Thiamine 200 MG/2 ML MDV IVPUSH ONE (10:04)
[2025-09-01] MEDS: Folic Acid 1 MG/0.2 ML UD Syringe IV STA (10:04)
[2025-09-01] MEDS: PHENobarbital Sodium 130 MG/ML SDV IVPUSH PRN ×2 (11:30→13:50)
[2025-09-01] MEDS ORDERED: Sodium Chloride 0.9% 10 ML Syringe FLUSH PRN (14:01)
[2025-09-01] MEDS ORDERED: Sodium Chloride 0.9% 2.5 ML Syringe FLUSH PRN (14:01)
[2025-09-01] MEDS ORDERED: PHENobarbital Sodium 130 MG/ML SDV IVPUSH PRN (14:05)
[2025-09-01] MEDS: Pantoprazole 40 MG in Sodium Chloride 0.9% 20 ML IVPUSH ONE (15:03)
[2025-09-01] MEDS: PHENOBARBITAL SODIUM IV ONE (15:13)
[2025-09-01] MEDS: SODIUM CHLORIDE 0.9% IV ONE (15:13)
[2025-09-01] MEDS: Ondansetron 4 MG/2 ML SDV IVPUSH PRN (20:32)
[2025-09-01] MEDS: LORazepam 2 MG/ML SDV IVPUSH ONE (23:39)
[2025-09-02 05:50] LABS: BASOPHILS ABSOLUTE AUTO 0.05 K/uL (0.00-0.20); BASOPHILS PERCENT AUTO 1.0 % (0.0-1.0); EOSINOPHILS ABSOLUTE AUTO 0.07 K/uL (0.00-0.45); EOSINOPHILS PERCENT AUTO 1.4 % (0.0-6.0); IMMATURE GRAN ABSOLUTE AUTO 0.01 K/uL (0.00-0.05); IMMATURE GRAN PERCENT AUTO 0.2 % (0.0-0.4); LYMPHOCYTES ABSOLUTE AUTO 1.98 K/uL (1.00-4.80); LYMPHOCYTES PERCENT AUTO 40.3 % (24.0-44.0); MEAN PLATELET VOLUME 10.5 fL (9.4-12.4); MONOCYTES ABSOLUTE AUTO 0.57 K/uL (0.00-0.80); MONOCYTES PERCENT AUTO 11.6 % (0.0-8.0); NEUTROPHILS ABSOLUTE AUTO 2.23 K/uL (1.80-7.70); NEUTROPHILS PERCENT AUTO 45.5 % (41.0-71.0); NRBC ABSOLUTE 0.00 K/uL (0.00-0.02); NRBC PERCENT 0.0 /100WBC (0.0-0.2); PLATELET COUNT,PLT 126 K/uL (150-400); RED BLOOD CELL COUNT 4.36 M/uL (4.52-5.90); WHITE BLOOD CELL COUNT,WBC 4.91 K/uL (3.9-11.3)
[2025-09-02 06:54] LABS: A/G RATIO 1.1 (0.9-1.6); ALANINE AMINOTRANSFERASE,ALT 33.0 IU/L (14-63); ASPARTATE AMNIOTRANSFERASE,AST 38.0 IU/L (15-37); BILIRUBIN TOTAL 3.0 mg/dL (0.2-1.0); BLOOD UREA NITROGEN,BUN 11.0 mg/dL (7.0-18.0); CARBON DIOXIDE,CO2 26.9 mmol/L (21.0-32.0); CHLORIDE,CL 103.0 mmol/L (98-107); CREATININE 0.8 mg/dL (0.8-1.3); EST CRCL DRUG DOSING (CG) 149.31 mL/min; GLUCOSE RANDOM 94.0 mg/dL (74-106); PHOSPHORUS 3.3 mg/dL (2.6-4.7); POTASSIUM,K 3.8 mmol/L (3.5-5.1); PROTEIN TOTAL,TP 6.2 g/dL (6.4-8.2); SODIUM,NA 138.0 mmol/L (136-148)
[2025-09-02 07:00] LABS: ESTIMATED GFR 117.0 mL/min (>60)
[2025-09-02] MEDS: Thiamine 200 MG/2 ML MDV IVPUSH SCH (07:59)
[2025-09-02] MEDS: Magnesium Sulfate 4 GM/100 mL 4 GM in Premix Bag 1 BAG IV ONE (08:15)
[2025-09-03 05:35] LABS: BASOPHILS ABSOLUTE AUTO 0.02 K/uL (0.00-0.20); BASOPHILS PERCENT AUTO 0.6 % (0.0-1.0); EOSINOPHILS ABSOLUTE AUTO 0.06 K/uL (0.00-0.45); EOSINOPHILS PERCENT AUTO 1.7 % (0.0-6.0); IMMATURE GRAN ABSOLUTE AUTO 0.00 K/uL (0.00-0.05); IMMATURE GRAN PERCENT AUTO 0.0 % (0.0-0.4); LYMPHOCYTES ABSOLUTE AUTO 1.56 K/uL (1.00-4.80); LYMPHOCYTES PERCENT AUTO 43.3 % (24.0-44.0); MEAN PLATELET VOLUME 10.5 fL (9.4-12.4); MONOCYTES ABSOLUTE AUTO 0.35 K/uL (0.00-0.80); MONOCYTES PERCENT AUTO 9.7 % (0.0-8.0); NEUTROPHILS ABSOLUTE AUTO 1.61 K/uL (1.80-7.70); NEUTROPHILS PERCENT AUTO 44.7 % (41.0-71.0); NRBC ABSOLUTE 0.00 K/uL (0.00-0.02); NRBC PERCENT 0.0 /100WBC (0.0-0.2); PLATELET COUNT,PLT 111 K/uL (150-400); RED BLOOD CELL COUNT 3.96 M/uL (4.52-5.90); WHITE BLOOD CELL COUNT,WBC 3.60 K/uL (3.9-11.3)
[2025-09-03 06:00] LABS: A/G RATIO 1.2 (0.9-1.6); ALANINE AMINOTRANSFERASE,ALT 31.0 IU/L (14-63); ASPARTATE AMNIOTRANSFERASE,AST 36.0 IU/L (15-37); BILIRUBIN TOTAL 2.3 mg/dL (0.2-1.0); BLOOD UREA NITROGEN,BUN 6.0 mg/dL (7.0-18.0); CARBON DIOXIDE,CO2 28.0 mmol/L (21.0-32.0); CHLORIDE,CL 106.0 mmol/L (98-107); CREATININE 0.7 mg/dL (0.8-1.3); EST CRCL DRUG DOSING (CG) 170.64 mL/min; GLUCOSE RANDOM 100.0 mg/dL (74-106); PHOSPHORUS 3.4 mg/dL (2.6-4.7); POTASSIUM,K 3.4 mmol/L (3.5-5.1); PROTEIN TOTAL,TP 6.1 g/dL (6.4-8.2); SODIUM,NA 141.0 mmol/L (136-148)
[2025-09-03 06:11] LABS: ESTIMATED GFR 122.0 mL/min (>60)
[2025-09-03 14:34] VITALS: BP 135/77; PULSE 79
== END 2025-09-03 13:10 | disposition home or self-care (01) | DRG 897 ==
LOC: MW.ED 07:28 → MW.ICU 13:27 → MW.MS 09-02 16:41
PROVIDERS: ADMIT Family Medicine; ATTEND Family Medicine
PROC: HZ2ZZZZ Detoxification Services for Substance Abuse Treatment (ICD-10-PCS; principal; 2025-09-01)
DX: F10.239 Alcohol dependence with withdrawal, unspecified (principal); R74.01 Elevation of levels of liver transaminase levels; F41.9 Anxiety disorder, unspecified; E86.0 Dehydration; F32.A Depression, unspecified; F17.200 Nicotine dependence, unspecified, uncomplicated; E80.6 Other disorders of bilirubin metabolism; Z90.49 Acquired absence of other specified parts of digestive tract; Z88.0 Allergy status to penicillin
CPT/HCPCS: 36415; 71046; 71046-26; 80053; 80305; 80307; 81003; 83690; 83735; 84100; 85025; 85610; 96365; 96375; 99284-25; 99285; A9270-GY; J2060; J2405; J2470; J2560; J3411; J3475; J3490; J7030

== ENCOUNTER 2025-09-04 03:05 | Emergency (ER) | payer MEDICAID ==
[2025-09-04 03:55] LABS: APPEARANCE,URINE CLEAR; GLUCOSE,URINE NEGATIVE (NEGATIVE); OCCULT BLOOD,URINE NEGATIVE (NEGATIVE)
[2025-09-04 04:05] LABS: BASOPHILS ABSOLUTE AUTO 0.04 K/uL (0.00-0.20); BASOPHILS PERCENT AUTO 0.6 % (0.0-1.0); EOSINOPHILS ABSOLUTE AUTO 0.10 K/uL (0.00-0.45); EOSINOPHILS PERCENT AUTO 1.6 % (0.0-6.0); IMMATURE GRAN ABSOLUTE AUTO 0.01 K/uL (0.00-0.05); IMMATURE GRAN PERCENT AUTO 0.2 % (0.0-0.4); LYMPHOCYTES ABSOLUTE AUTO 1.55 K/uL (1.00-4.80); LYMPHOCYTES PERCENT AUTO 24.3 % (24.0-44.0); MEAN PLATELET VOLUME 10.3 fL (9.4-12.4); MONOCYTES ABSOLUTE AUTO 0.48 K/uL (0.00-0.80); MONOCYTES PERCENT AUTO 7.5 % (0.0-8.0); NEUTROPHILS ABSOLUTE AUTO 4.20 K/uL (1.80-7.70); NEUTROPHILS PERCENT AUTO 65.8 % (41.0-71.0); NRBC ABSOLUTE 0.00 K/uL (0.00-0.02); NRBC PERCENT 0.0 /100WBC (0.0-0.2); PLATELET COUNT,PLT 116 K/uL (150-400); RED BLOOD CELL COUNT 4.16 M/uL (4.52-5.90); WHITE BLOOD CELL COUNT,WBC 6.38 K/uL (3.9-11.3)
[2025-09-04 04:26] LABS: AMPHETAMINES SCREEN, URINE NEGATIVE (CUTOFF=500); BUPRENORPHINE SCREEN,URINE NEGATIVE (CUTOFF=10); METHADONE SCREEN, URINE NEGATIVE (CUTOFF=200); METHAMPHETAMINES SCREEN, URINE NEGATIVE (CUTOFF=500); OXYCODONE SCREEN,URINE NEGATIVE (CUT0FF=100); PCP SCREEN,URINE NEGATIVE (CUTOFF=25); THC SCREEN,URINE 20 NG/ML PRESUMPTIVE POSITIVE (CUTOFF=50)
[2025-09-04 04:28] LABS: A/G RATIO 1.2 (0.9-1.6); ALANINE AMINOTRANSFERASE,ALT 39.0 IU/L (14-63); ASPARTATE AMNIOTRANSFERASE,AST 48.0 IU/L (15-37); BILIRUBIN TOTAL 1.5 mg/dL (0.2-1.0); BLOOD UREA NITROGEN,BUN 6.0 mg/dL (7.0-18.0); CARBON DIOXIDE,CO2 28.0 mmol/L (21.0-32.0); CHLORIDE,CL 101.0 mmol/L (98-107); CREATININE 0.9 mg/dL (0.8-1.3); EST CRCL DRUG DOSING (CG) 134.31 mL/min; GLUCOSE RANDOM 176.0 mg/dL (74-106); POTASSIUM,K 3.4 mmol/L (3.5-5.1); PROTEIN TOTAL,TP 7.0 g/dL (6.4-8.2); SODIUM,NA 137.0 mmol/L (136-148)
[2025-09-04 04:31] LABS: ESTIMATED GFR 113.0 mL/min (>60)
[2025-09-04 04:52] VITALS: BP 118/71; PULSE 85
== END 2025-09-04 05:02 | disposition home or self-care (01) ==
LOC: MW.ED 03:05
DX: G47.00 Insomnia, unspecified (principal); F15.90 Other stimulant use, unspecified, uncomplicated; E87.6 Hypokalemia; E83.42 Hypomagnesemia; F17.200 Nicotine dependence, unspecified, uncomplicated; Z79.899 Other long term (current) drug therapy; Z75.3 Unavailability and inaccessibility of health-care facilities; Z88.0 Allergy status to penicillin; Z91.0120 Allergy to eggs, unspecified; Z90.49 Acquired absence of other specified parts of digestive tract
CPT/HCPCS: 36415; 80053; 80305; 80307; 81003; 83735; 85025; 99283; 99284